=== PATIENT | female | born 1995 | race African-American/Black ===

== ENCOUNTER 2021-02-21 23:52 | Emergency (ER) | payer BC, OTHER ==
[2021-02-22 00:55] LABS: #Monocytes 0.6 10x3/uL (0.0-1.1); #Neutrophils 6.6 10x3/uL (1.5-8.4); %Basophils 0.2 % (0.0-2.0); %Eosinophils 0.4 % (0.0-6.0); %Lymphocytes 22.6 % (18.0-47.0); %Monocytes 6.3 % (0.0-10.0); %Neutrophils 70.2 % (40.0-75.0); Hemoglobin 10.9 g/dL (12.0-15.5); Mean Corpuscular HGB CONC 32.5 g/dL (32.0-36.0); Mean Corpuscular Hemoglobin 29.2 pg (27.0-33.0); Mean Corpuscular Volume 89.8 fl (81.6-98.3); Mean Platelet Volume 9.8 fl (7.4-10.4); Platelet Count 261 10x3/uL (150-450); RBC Distribution Width 13.3 % (11.5-14.5); Red Blood Cell (RBC) Count 3.73 10x6/uL (3.90-5.03); White Blood Cell (WBC) Count 9.4 10x3/uL (3.5-10.5)
[2021-02-22 01:03] LABS: Bilirubin Neg (Negative); Blood, Urine Negative (Negative); Clarity Slightly Cloudy (Clear); Glucose, Urine (Dipstick) Normal (Negative); Ketone, Urine Negative (Negative); Leukocyte 25 (Negative); Nitrite Negative (Negative); Protein, Urine (Dipstick) 15 mg/dl (Neg-Trace); Specific Gravity, Urine 1.025 (1.002-1.036)
[2021-02-22 01:14] LABS: Bacteria/HPF 2+ HPF (None Seen); RBC/HPF 0-3 HPF (0-3)
[2021-02-22 01:15] LABS: Calcium Oxalate Crystals 2+ HPF (None Seen); Mucous/LPF 3+ LPF (<2+)
[2021-02-22 01:16] LABS: ALT (SGPT) Less than 6 U/L (8-55); AST (SGOT) 7 U/L (5-34); Albumin 3.5 g/dL (3.5-5.0); Alkaline Phosphatase 46 U/L (40-110); Anion Gap 12 mmol/L (10-20); BUN (Urea Nitrogen) 13 mg/dL (7.0-18.7); Bilirubin, Total 0.2 mg/dL (0.2-1.2); Calc. Creatinine Clearance 0 mL/min (70-130); Calcium 8.8 mg/dL (7.8-10.44); Carbon Dioxide 21 mmol/L (22-29); Chloride 104 mmol/L (98-107); Globulin 3.1 g/dL (2.4-3.5); Glucose 99 mg/dL (70-105); Lipase 24 U/L (8-78); Protein, Total 6.6 g/dL (6.0-8.3); Sodium 133 mmol/L (136-145)
[2021-02-22] MEDS ORDERED: Ondansetron PF 4 MG/2 ML Vial ONE (01:28)
== END 2021-02-22 03:23 | disposition home or self-care (01) ==
LOC: CSHERS 23:52
DX: O99.891 Other specified diseases and conditions complicating pregnancy (principal); R10.819 Abdominal tenderness, unspecified site; Z3A.17 17 weeks gestation of pregnancy
CPT/HCPCS: 36415; 76815; 80053; 81003; 81015; 83690; 85025; 87086; 96374; J2405

== ENCOUNTER 2021-07-20 18:21 | Inpatient (IN) | payer BC, OTHER ==
[~2021-07-20 18:21] MED LIST: Bupivacaine 0.25% HCL 30 ML VIAL ONE; Bupivacaine PF 0.5% 30 ML VIAL ONE
[2021-07-20 19:14] VITALS: BMI 43.4
[2021-07-20] MEDS ORDERED: hydrALAZINE 20 MG/ML VIAL SLOW IVP PRN ×2 (19:52→21:25)
[2021-07-20] MEDS ORDERED: Acetaminophen 500 MG TAB PO PRN (19:52)
[2021-07-20] MEDS ORDERED: Butorphanol Tartrate 1 MG/ML VIAL ONE (20:14)
[2021-07-20] MEDS ORDERED: Butorphanol Tartrate 1 MG/ML VIAL SLOW IVP PRN (20:16)
[2021-07-20] MEDS ORDERED: Methylergonovine 0.2 MG/ML VIAL IM PRN (21:25)
[2021-07-20] MEDS ORDERED: Ondansetron PF 4 MG/2 ML Vial IVP PRN ×2 (21:25→22:47)
[2021-07-20] MEDS ORDERED: Misoprostol 200 MCG TAB PR PRN (21:25)
[2021-07-20] MEDS ORDERED: Lidocaine 1% (PF) 30 ML VIAL SC PRN (21:25)
[2021-07-20] MEDS ORDERED: Ibuprofen 800 MG TAB PO PRN (21:25)
[2021-07-20] MEDS ORDERED: Promethazine HCl 25 MG/ML VIAL IM PRN ×2 (21:25→22:47)
[2021-07-20] MEDS ORDERED: Fentanyl 2 mcg/Bup 0.1% Cadd 100 ML ONE (21:29)
[2021-07-20] MEDS ORDERED: Lactated Ringer's 1,000 ML IV SCH (21:30)
[2021-07-20 21:32] LABS: Hemoglobin 11.2 g/dL (12.0-15.5); Mean Corpuscular HGB CONC 32.7 g/dL (32.0-36.0); Mean Corpuscular Hemoglobin 29.3 pg (27.0-33.0); Mean Corpuscular Volume 89.8 fl (81.6-98.3); Mean Platelet Volume 10.5 fl (7.4-10.4); Platelet Count 248 10x3/uL (150-450); RBC Distribution Width 13.6 % (11.5-14.5); Red Blood Cell (RBC) Count 3.82 10x6/uL (3.90-5.03); White Blood Cell (WBC) Count 11.3 10x3/uL (3.5-10.5)
[2021-07-20] MEDS ORDERED: Fentanyl 100 MCG/2 ML VIAL ONE (21:45)
[2021-07-20 21:58] LABS: Hep B Surf Ag Non-Reactive S/CO (NonReactive); Syphilis Antibody Nonreactive (Nonreactive); Syphilis Antibody Index 0.02 S/CO (<1.00 Non-Reactive)
[2021-07-20 22:06] LABS: HBSAg Index 0.12 S/CO (0-0.99)
[2021-07-20] MEDS ORDERED: Hydrocerin (Eucerin) Cream 120 gm Jar TOP PRN (22:47)
[2021-07-20] MEDS ORDERED: ePHEDrine Sulfate 50 MG/10 ML VIAL SLOW IVP PRN (22:47)
[2021-07-20] MEDS ORDERED: Acetaminophen 325 MG TAB PO PRN (22:47)
[2021-07-20] MEDS ORDERED: Lactated Ringer's 500 ML IV PRN (22:47)
[2021-07-20] MEDS ORDERED: diphenhydrAMINE 50 MG/ML VIAL IVP PRN (22:47)
[2021-07-20] MEDS ORDERED: Naloxone HCl 0.4 mg/ml Vial IVP PRN ×2 (22:47)
[2021-07-20] MEDS ORDERED: Communication Order-Pharmacy FS SCH (23:00)
[2021-07-20] MEDS ORDERED: Fentanyl 2 mcg/Bupivacaine 0.1% Cassette 100 ML EPIDURAL SCH (23:00)
[2021-07-20] MEDS: NS w/ Oxytocin 30 units 500 ML IV SCH (23:51)
[2021-07-21] MEDS: NS w/ Oxytocin 30 units 500 ML IV SCH (00:29)
[2021-07-21 01:15] LABS: SARS-CoV-2 NAA Rapid Test Not Detected (NotDetected)
[2021-07-21] MEDS ORDERED: Boostrix 0.5 ML (Tdap) VIAL IM ONE (01:42)
[2021-07-21] MEDS ORDERED: Ondansetron PF 4 MG/2 ML Vial IVP PRN (01:42)
[2021-07-21] MEDS ORDERED: Lanolin Ointment 7 GM TUBE TOP PRN (01:42)
[2021-07-21] MEDS ORDERED: Promethazine HCl 25 MG/ML VIAL IM PRN (01:42)
[2021-07-21] MEDS ORDERED: Bisacodyl 10 MG SUPP PR PRN (01:42)
[2021-07-21] MEDS ORDERED: diphenhydrAMINE 25 MG CAP PO PRN (01:42)
[2021-07-21] MEDS ORDERED: NS w/ Oxytocin 30 units 500 ML IV SCH (01:42)
[2021-07-21] MEDS ORDERED: Milk Of Magnesia 30 ML UDCUP PO PRN (01:42)
[2021-07-21] MEDS ORDERED: hydrALAZINE 20 MG/ML VIAL SLOW IVP PRN (01:42)
[2021-07-21] MEDS ORDERED: cloNIDine 0.1 MG TAB PO PRN (01:42)
[2021-07-21] MEDS: HYDROcodone/Acetaminophen 5/325 mg Tablet PO PRN ×4 (04:56→19:36)
[2021-07-21] MEDS: Ibuprofen 800 MG TAB PO SCH ×3 (06:22→21:42)
[2021-07-21] MEDS: Ferrous Sulfate 325 MG TAB PO SCH ×2 (08:17→15:39)
[2021-07-21] MEDS: Docusate Calcium (SURFAK) 240 MG CAP PO SCH ×2 (08:26→19:37)
[2021-07-21] MEDS: Prenatal Vitamin 1 TAB PO SCH (08:26)
[2021-07-22] MEDS: HYDROcodone/Acetaminophen 5/325 mg Tablet PO PRN ×2 (03:04→09:26)
[2021-07-22 07:37] VITALS: BP 125/86; TEMP 97.7
[2021-07-22] MEDS: Ferrous Sulfate 325 MG TAB PO SCH (07:38)
[2021-07-22] MEDS: Docusate Calcium (SURFAK) 240 MG CAP PO SCH (09:22)
[2021-07-22] MEDS: Prenatal Vitamin 1 TAB PO SCH (09:22)
[2021-07-22] MEDS: Ibuprofen 800 MG TAB PO SCH (09:22)
== END 2021-07-22 09:55 | disposition home or self-care (01) | DRG 807 ==
LOC: CSHLD/OP 18:21 → CSHLD 21:22 → CSHPED 07-21 02:02
PROVIDERS: ADMIT Family Medicine; ATTEND Family Medicine
PROC: 10E0XZZ Delivery of Products of Conception, External Approach (ICD-10-PCS; principal; 2021-07-20)
PROC: 10907ZC Drainage of Amniotic Fluid, Therapeutic from Products of Conception, Via Natural or Artificial Opening (ICD-10-PCS; 2021-07-20)
DX: O99.214 Obesity complicating childbirth (principal); Z37.0 Single live birth; Z3A.39 39 weeks gestation of pregnancy; Z20.822 Contact with and (suspected) exposure to COVID-19; O69.81X0 Labor and delivery complicated by cord around neck, without compression, not applicable or unspecified
CPT/HCPCS: 36415; 85027; 85461; 86780; 86850; 86900; 86901; 87340; 90384; 96372; 99285; J0595; J2590; S0020; U0002

== ENCOUNTER 2023-02-28 18:58 | Emergency (ER) | payer BC, OTHER ==
[2023-02-28] MEDS ORDERED: Ketorolac Tromethamine 30 MG/ML VIAL ONE (19:43)
[2023-02-28] MEDS ORDERED: Ondansetron PF 4 MG/2 ML Vial ONE (19:43)
[2023-02-28 20:02] LABS: #Eosinphils 0.1 10x3/uL (0.0-0.5); #Monocytes 0.5 10x3/uL (0.0-1.1); #Neutrophils 4.6 10x3/uL (1.5-8.4); %Basophils 0.3 % (0.0-2.0); %Eosinophils 1.4 % (0.0-6.0); %Lymphocytes 25.6 % (18.0-47.0); %Monocytes 7.3 % (0.0-10.0); %Neutrophils 65.3 % (40.0-75.0); Hemoglobin 12.2 g/dL (12.0-15.5); Mean Corpuscular HGB CONC 32.1 g/dL (32.0-36.0); Mean Corpuscular Hemoglobin 27.9 pg (27.0-33.0); Mean Platelet Volume 10.1 fl (7.4-10.4); Platelet Count 337 10x3/uL (150-450); RBC Distribution Width 13.4 % (11.5-14.5); Red Blood Cell (RBC) Count 4.37 10x6/uL (3.90-5.03)
[2023-02-28 20:08] LABS: BHCG - Serum Negative (NEGATIVE); Pregs Control Background? CLEAR/WHITE (CLR/WHITE); Pregs Control Bar Appear? YES (CONTROL BAR)
[2023-02-28 20:14] LABS: ALT (SGPT) 12 U/L (8-55); AST (SGOT) 13 U/L (5-34); Alkaline Phosphatase 53 U/L (40-110); Anion Gap 11 mmol/L (10-20); BUN (Urea Nitrogen) 17 mg/dL (7.0-18.7); Bilirubin, Total 0.3 mg/dL (0.2-1.2); Calc. Creatinine Clearance 0 mL/min (70-130); Calcium 8.8 mg/dL (7.8-10.44); Carbon Dioxide 27 mmol/L (22-29); Chloride 105 mmol/L (98-107); Estimated GFR 104; Globulin 3.3 g/dL (2.4-3.5); Glucose 97 mg/dL (70-105); Lipase 39 U/L (8-78); Potassium 4.1 mmol/L (3.5-5.1); Protein, Total 7.3 g/dL (6.0-8.3); Sodium 139 mmol/L (136-145)
[2023-02-28 20:52] LABS: Bilirubin Neg (Negative); Blood, Urine 250 (Negative); Clarity Cloudy (Clear); Glucose, Urine (Dipstick) Normal (Negative); Ketone, Urine Negative (Negative); Leukocyte 25 (Negative); Nitrite Negative (Negative); Protein, Urine (Dipstick) 30 mg/dl (Neg-Trace)
[2023-02-28 21:02] LABS: RBC/HPF 21-50 HPF (0-3)
[2023-02-28 21:03] LABS: Bacteria/HPF Rare-Few HPF (None Seen); Squamous Epithelial 0-3 HPF (0-3)
[2023-02-28] MEDS ORDERED: Mag-Al Plus 1200 MG/1200 MG/120 MG/30 ML UDCUP ONE (21:17)
[2023-02-28] MEDS ORDERED: Lidocaine Viscous Sol 2% 15 ml UD Cup ONE (21:17)
[2023-02-28] MEDS ORDERED: cefTRIAXone (ROCEPHIN) 1 GM VIAL ONE (21:17)
[2023-02-28] MEDS ORDERED: Morphine 4 MG/ML VIAL ONE (22:31)
== END 2023-02-28 23:00 | disposition home or self-care (01) ==
LOC: CSHERS 18:58
DX: N13.2 Hydronephrosis with renal and ureteral calculous obstruction (principal)
CPT/HCPCS: 74176; 80053; 81003; 81015; 83690; 84703; 85025; 96365; 96375; J0696; J1885; J2270; J2405

== ENCOUNTER 2023-06-10 22:43 | Emergency (ER) | payer BC, OTHER ==
[2023-06-10] MEDS ORDERED: Ketorolac Tromethamine 30 MG/ML VIAL ONE (23:12)
[2023-06-10 23:20] LABS: BHCG - Serum Negative (NEGATIVE); Pregs Control Background? CLEAR/WHITE (CLR/WHITE); Pregs Control Bar Appear? YES (CONTROL BAR)
[2023-06-10 23:22] LABS: #Eosinphils 0.2 10x3/uL (0.0-0.5); #Monocytes 0.6 10x3/uL (0.0-1.1); #Neutrophils 4.2 10x3/uL (1.5-8.4); %Basophils 0.5 % (0.0-2.0); %Eosinophils 2.1 % (0.0-6.0); %Lymphocytes 32.1 % (18.0-47.0); %Monocytes 7.7 % (0.0-10.0); %Neutrophils 57.5 % (40.0-75.0); Hemoglobin 10.7 g/dL (12.0-15.5); Mean Corpuscular Hemoglobin 27.2 pg (27.0-33.0); Mean Platelet Volume 10.2 fl (7.4-10.4); Platelet Count 326 10x3/uL (150-450); RBC Distribution Width 13.9 % (11.5-14.5); Red Blood Cell (RBC) Count 3.93 10x6/uL (3.90-5.03); White Blood Cell (WBC) Count 7.3 10x3/uL (3.5-10.5)
[2023-06-10 23:29] LABS: ALT (SGPT) 18 U/L (8-55); AST (SGOT) 16 U/L (5-34); Alkaline Phosphatase 60 U/L (40-110); Anion Gap 11 mmol/L (10-20); BUN (Urea Nitrogen) 13 mg/dL (7.0-18.7); Bilirubin, Total 0.3 mg/dL (0.2-1.2); Calc. Creatinine Clearance 0 mL/min (70-130); Carbon Dioxide 27 mmol/L (22-29); Chloride 105 mmol/L (98-107); Estimated GFR 96; Globulin 3.4 g/dL (2.4-3.5); Glucose 82 mg/dL (70-105); Protein, Total 7.4 g/dL (6.0-8.3); Sodium 139 mmol/L (136-145)
[2023-06-11 00:48] LABS: Bilirubin Neg (Negative); Blood, Urine 250 (Negative); Clarity Slightly Cloudy (Clear); Glucose, Urine (Dipstick) Normal (Negative); Ketone, Urine 5 mg/dL (Negative); Leukocyte 25 (Negative); Nitrite Negative (Negative); Protein, Urine (Dipstick) 30 mg/dl (Neg-Trace); Specific Gravity, Urine 1.025 (1.005-1.030)
[2023-06-11 00:57] LABS: Bacteria/HPF Rare-Few HPF (None Seen); CAUTI Indications for Culture Dysuria,urgency,freq; Mucous/LPF 1+ LPF (<2+)
[2023-06-11 00:59] LABS: Urine Culture Reflex No No
== END 2023-06-11 01:38 | disposition home or self-care (01) ==
LOC: CSHERS 22:43
DX: N93.8 Other specified abnormal uterine and vaginal bleeding (principal); R10.30 Lower abdominal pain, unspecified
CPT/HCPCS: 76856; 80053; 81001; 84703; 85025; 96374; J1885